=== PATIENT | male | born 1980 | race Caucasian/White ===

== ENCOUNTER 2023-10-19 23:15 | Emergency (ER) | payer SELFPAY ==
[~2023-10-19] VITALS: Ht 172.7 cm; Wt 72.0 kg
[2023-10-19 23:17] VITALS: O2SAT 98
[2023-10-20] MEDS ORDERED: AMOXICILLIN/POTASSIUM CLAVULANATE 875/125MG TAB PO ONE
[2023-10-20] MEDS ORDERED: TETANUS, DIPHTHERIA, PERTUSSIS VAC/PF 0.5ML (>10YR OLD) IM ONE
[2023-10-20] MEDS ORDERED: ONDANSETRON 4MG ODT PO NR (00:15)
[2023-10-20] MEDS ORDERED: MORPHINE SULFATE 10 MG/ML CPJ IM NR (00:15)
[2023-10-20] MEDS ORDERED: LIDOCAINE HCL/PF 1% 10 MG/ML 5ML VIAL INFIL ONE (00:45)
[2023-10-20] MEDS ORDERED: AMOX1TAB16 MT (03:07)
[2023-10-20] MEDS ORDERED: HYDR-4001 MT (03:07)
[2023-10-20 03:10] VITALS: BP 115/76; PULSE 88; RESP 18; TEMP 98.4
== END 2023-10-20 03:16 | disposition home or self-care (01) ==
LOC: ER 23:15
DX: S61.411A Laceration without foreign body of right hand, initial encounter (principal); S61.412A Laceration without foreign body of left hand, initial encounter; I11.0 Hypertensive heart disease with heart failure; I50.9 Heart failure, unspecified; W54.0XXA Bitten by dog, initial encounter; Y93.89 Activity, other specified; Y92.89 Other specified places as the place of occurrence of the external cause; Y99.8 Other external cause status
CPT/HCPCS: 73130; 12005; 99284; 90715; 90471; 96372; Z7610 ×2; Q0162; J2270

== ENCOUNTER 2025-07-30 18:39 | Emergency (ER) | payer BC ==
[~2025-07-30] VITALS: Ht 175.3 cm; Wt 84.0 kg
[~2025-07-30 18:39] MED LIST: AMOX1TAB16 MT; HYDR-4001 MT
[2025-07-30] MEDS ORDERED: METHYLPREDNISOLONE 40MG/ML INJ IV ONE (20:15)
[2025-07-30] MEDS: METHYLPREDNISOLONE SOD SUCC 125MG/2ML (ACT-O-VIAL) IV SCH (20:29)
[2025-07-30] MEDS: IPRATROPIUM/ALBUTEROL 0.5-3(2.5)MG/3ML NEB HHN ONE (20:35)
[2025-07-30 20:39] VITALS: PULSE 75; RESP 20; O2SAT 96
[2025-07-30] MEDS ORDERED: BENZ100C86 MT (21:10)
[2025-07-30] MEDS ORDERED: P20 MT (21:10)
[2025-07-30 21:49] VITALS: BP 141/86; PULSE 64; RESP 19; TEMP 37; O2SAT 98
== END 2025-07-30 21:51 | disposition home or self-care (01) ==
LOC: ER 18:39
DX: R05.9 Cough, unspecified (principal); I11.0 Hypertensive heart disease with heart failure; I50.9 Heart failure, unspecified; Z79.899 Other long term (current) drug therapy
CPT/HCPCS: 71045; 94640; 96374; 99283; J2919; Z7610 ×3; 94664